=== PATIENT | male | born 2000 | race Caucasian/White ===

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

== ENCOUNTER 2021-07-24 11:27 | Emergency (ER) | payer SELFPAY ==
[~2021-07-24] VITALS: Ht 129.5 cm; Wt 86.3 kg
[2021-07-24 12:25] VITALS: BP 116/67
== END 2021-07-24 12:42 | disposition home or self-care (01) | DRG 552 ==
LOC: ED 11:27
DX: M54.50 Low back pain, unspecified (principal); V43.52XA Car driver injured in collision with other type car in traffic accident, initial encounter